=== PATIENT | female | born 1955 | race Caucasian/White ===

== ENCOUNTER 2016-08-03 05:32 | Day surgery (SDC) | payer OTHER ==
[~2016-08-03] VITALS: Ht 157.5 cm; Wt 90.5 kg
--- NOTE | 2016-08-04 09:33 | OR ---
ADMIT: 08/03/2016 RM/LOC: [facility] MR#: [id number] [address] DANIELLE SHINEKVNG Pacheco [address] [place] [address] Operative/Delivery Room Report SEX: F AGE: 61 : 1955 SURGERY DATE: 08/03/2016 SURGEON: Enrique Streeter MD PREOPERATIVE DIAGNOSES: 1. Right breast mass. 2. Axillary and groin lymphadenopathy. POSTOPERATIVE DIAGNOSES: 1. Right breast mass. 2. Axillary and groin lymphadenopathy. PROCEDURES: 1. Right breast excisional biopsy. 2. Deep excisional lymph node biopsy of the left axilla. HOOP DRIVING MACHINE OPERATOR HELPER: JAMES Jett, whose assistance was necessary for deep tissue retraction. ANESTHESIA: General. ESTIMATED BLOOD LOSS: 25 mL. DESCRIPTION OF PROCEDURE: The patient was taken to the operating room and placed supine on the operating room table. General anesthesia was established. The right breast and left axilla were prepped and draped in the standard surgical fashion. A curvilinear incision was made in the circumareolar position at the outer lower quadrant of the right breast. Dissection proceeded through the subcutaneous tissue to the preoperatively marked mass. This was in the retroareolar position. This was smooth in contour and clinically appeared to be possibly lipoma. This was carefully dissected, circumferentially excised, and sent as specimen. No residual palpable abnormality was present. The wound was irrigated and there was no bleeding. The deep tissue was closed with 3-0 Vicryl suture. Skin edges were ADMIT: 08/03/2016 RM/LOC: [facility] MR#: [id number] [address] DANIELLE SHINEKVNG Pacheco [address] [place] [address] Operative/Delivery Room Report SEX: F AGE: 61 : 1955 approximated with 4-0 Monocryl in a subcuticular fashion and Dermabond. Local anesthetic was injected at the incision. Next, a curvilinear incision was made at the inferior hairline of the left axilla. Dissection proceeded through the subcutaneous tissue to the deep axillary content. The enlarged lymph node, which measured almost 3 cm, was identified. This was dissected circumferentially carefully and excised and sent for lymphoma study. The wound was irrigated and there was no bleeding. The deep tissue was closed with 3-0 Vicryl suture. Skin edges were approximated with 4-0 Monocryl in a subcuticular fashion and Dermabond. Local anesthetic was injected and dressings were placed on both wounds. Sponge, needle, and instrument counts were correct at the end of the case. The patient tolerated the procedure well and transferred to the recovery area in stable condition. Enrique Streeter MD/ guillermo JOB #: [id number] CC: Enrique Streeter, Attending Physician Navi Rivera PA-C, Family Physician
== END 2016-08-03 11:35 | disposition home or self-care (01) ==
LOC: SSS 05:32
PROC: 07B60ZX Excision of Left Axillary Lymphatic, Open Approach, Diagnostic (ICD-10-PCS; principal; 2016-08-03)
PROC: 0HBT0ZX Excision of Right Breast, Open Approach, Diagnostic (ICD-10-PCS; principal; 2016-08-03)
DX: R59.0 Localized enlarged lymph nodes (principal); N63 Unspecified lump in breast; E66.9 Obesity, unspecified; M19.90 Unspecified osteoarthritis, unspecified site; K21.9 Gastro-esophageal reflux disease without esophagitis; E03.9 Hypothyroidism, unspecified; Z90.49 Acquired absence of other specified parts of digestive tract; Z90.710 Acquired absence of both cervix and uterus; Z98.890 Other specified postprocedural states; Z79.899 Other long term (current) drug therapy